=== PATIENT | male | born 1995 | race African-American/Black ===

== ENCOUNTER 2017-03-06 16:04 | Emergency (ER) | payer SELFPAY ==
[~2017-03-06] VITALS: Ht 172.7 cm; Wt 81.0 kg
[2017-03-06] MEDS ORDERED: KETOROLAC 30MG/ML VIAL IM ONE (21:00)
[2017-03-06] MEDS ORDERED: METHOCARBAMOL 500MG TABLET PO ONE (21:00)
[2017-03-06 21:55] VITALS: BP 124/80
== END 2017-03-06 21:56 | disposition home or self-care (01) ==
LOC: ER 16:04
DX: M25.551 Pain in right hip (principal); M79.605 Pain in left leg; M79.604 Pain in right leg; J45.909 Unspecified asthma, uncomplicated
CPT/HCPCS: 73502; 96372; 99284; J1885